=== PATIENT | male | born 1955 | race Caucasian/White ===

== ENCOUNTER 2016-10-19 11:25 | Emergency (ER) | payer MEDICARE, OTHER ==
[~2016-10-19 11:25] MED LIST: AMARYL2 MG PO; AVODART0.5 MG PO; CARAFATE1 GM PO; CELEXA10 MG PO; COLACE100 MG PO; DULERA 100 MCG8.8 GM INH; FLONASE 0.05% N16 GM; HYDROCHLOROTHIA50 MG PO; LORTAB 7.5-3251 EACH PO; LOVASTATIN20 MG PO; NAPROSYN500 MG PO; NEURONTIN600 MG PO; PLAVIX75 MG PO; PROAIR HFA8.5 GM INH; PROTONIX40 MG PO; RANEXA1000 MG PO; SINGULAIR10 MG PO; THERAGRAN TAB1 EA PO; XANAX0.5 MG PO; ZESTRIL5 MG PO
[2016-10-19 12:10] LABS: HEMOGLOBIN 11.6 gm/dl (14.0-17.5); RED BLOOD COUNT 4.62 M/UL (4.20-5.50); WHITE BLOOD COUNT 5.6 K/UL (4.5-11.0)
[2016-10-19 12:39] LABS: BUN/CREATININE RATIO 12 (0-10)
== END 2016-10-19 16:05 | disposition home or self-care (01) ==
LOC: ER1 11:25
PROVIDERS: Emergency Medicine
DX: R07.89 Other chest pain (principal); R10.13 Epigastric pain; E11.9 Type 2 diabetes mellitus without complications; J44.9 Chronic obstructive pulmonary disease, unspecified; K21.9 Gastro-esophageal reflux disease without esophagitis; Z87.891 Personal history of nicotine dependence; Z88.6 Allergy status to analgesic agent; Z79.02 Long term (current) use of antithrombotics/antiplatelets; Z79.4 Long term (current) use of insulin; Z79.899 Other long term (current) drug therapy
CPT/HCPCS: 36415; 71010; 80053; 82550; 82553; 83690; 83874; 84484; 85025; 93005; 99285

== ENCOUNTER 2016-12-17 01:51 | Emergency (ER) | payer MEDICARE, OTHER ==
[2016-12-17 02:18] LABS: HEMOGLOBIN 12.2 gm/dl (14.0-17.5); RED BLOOD COUNT 4.73 M/UL (4.20-5.50)
[2016-12-17 02:40] LABS: BUN/CREATININE RATIO 15 (0-10)
== END 2016-12-17 09:01 | disposition short-term general hospital (02) ==
LOC: ER1 01:51
PROVIDERS: Student in an Organized Health Care Education/Training Program
DX: K22.3 Perforation of esophagus (principal); R07.9 Chest pain, unspecified; J45.909 Unspecified asthma, uncomplicated; J44.9 Chronic obstructive pulmonary disease, unspecified; K21.9 Gastro-esophageal reflux disease without esophagitis; I10 Essential (primary) hypertension; E78.5 Hyperlipidemia, unspecified; I25.10 Atherosclerotic heart disease of native coronary artery without angina pectoris; E11.8 Type 2 diabetes mellitus with unspecified complications; Z79.4 Long term (current) use of insulin; Z88.0 Allergy status to penicillin; Z88.8 Allergy status to other drugs, medicaments and biological substances; Z79.899 Other long term (current) drug therapy; Z90.49 Acquired absence of other specified parts of digestive tract
CPT/HCPCS: 36415; 71010; 80053; 81001; 82550; 82553; 83690; 83874; 84484; 85025; 85610; 85730; 87086; 93005; 96361; 96365; 96367; 96375; 96376; 99285; J1580; J2270; J2405; J2550; J7050; Q9963

== ENCOUNTER 2017-01-12 18:48 | Emergency (ER) | payer MEDICARE, OTHER ==
[2017-01-12 19:13] LABS: HEMOGLOBIN 11.4 gm/dl (14.0-17.5); RED BLOOD COUNT 4.55 M/UL (4.20-5.50); WHITE BLOOD COUNT 7.5 K/UL (4.5-11.0)
[2017-01-12 19:32] LABS: BUN/CREATININE RATIO 10 (0-10)
== END 2017-01-12 23:40 | disposition home or self-care (01) ==
LOC: ER1 18:48
PROVIDERS: Student in an Organized Health Care Education/Training Program
DX: R10.817 Generalized abdominal tenderness (principal); R11.2 Nausea with vomiting, unspecified; I25.10 Atherosclerotic heart disease of native coronary artery without angina pectoris; E11.9 Type 2 diabetes mellitus without complications; I10 Essential (primary) hypertension; J44.9 Chronic obstructive pulmonary disease, unspecified; J45.909 Unspecified asthma, uncomplicated; Z87.891 Personal history of nicotine dependence; Z88.2 Allergy status to sulfonamides; Z88.6 Allergy status to analgesic agent; Z88.8 Allergy status to other drugs, medicaments and biological substances; Z90.49 Acquired absence of other specified parts of digestive tract
CPT/HCPCS: 36415; 74022; 80053; 82272; 82550; 82553; 83605; 83690; 83874; 84484; 85025; 85610; 85730; 96372; 96374; 96375; 99284; J0500; J2270; J2405; J2550; J7050; Q9962

== ENCOUNTER 2020-08-16 13:05 | Emergency (ER) | payer MEDICARE, OTHER ==
[~2020-08-16 13:05] MED LIST changes: +ATIVAN0.5 MG PO; +CYANOCOBAL1000 MCG/1 INJ; +CYCLOBENZAPRINE5 MG PO; +CYMBALTA20 MG PO; +FINASTERIDE5 MG PO; +FLEXERIL 10 MG10 MG PO; +GABAPENTIN100 MG PO; +IMDUR ER TAB 3030 MG PO; +ISORDIL TAB 1010 MG PO; +LANTUS100 UNIT/1 SC; +LANTUS100 UNIT/1 SQ; +LASIX20 MG PO; +LINZESS290 MCG PO; +LIORESAL TAB 1010 MG PO; +NITROSTAT0.4 MG SL; +NORCO 5-325 TA1 EACH PO; +OMNICEF 300 MG300 MG PO; +PERCOCET 5-3251 EACH PO; +PERCOCET 7.5-31 EACH PO; +POTASSIUM CHLO10 MEQ PO; +TESSALON PERLE100 MG PO; +TOPROL XL50 MG PO; +VALTREX1000 MG PO; +VITAMIN B-1100 MG/ML SC; +ZOFRAN4 MG PO
[2020-08-16 15:33] LABS: HEMOGLOBIN 11.8 gm/dl (14.0-17.5); RED BLOOD COUNT 4.34 M/UL (4.20-5.50); WHITE BLOOD COUNT 8.8 K/UL (4.5-11.0)
[2020-08-16 16:36] LABS: BUN/CREATININE RATIO 15 (0-10)
[2020-08-16] MEDS ORDERED: AZITHROMYCIN250 MG PO (18:18)
== END 2020-08-16 18:36 | disposition home or self-care (01) ==
LOC: ER1 13:05
PROVIDERS: Emergency Medicine
DX: R10.9 Unspecified abdominal pain (principal); R91.8 Other nonspecific abnormal finding of lung field; J44.9 Chronic obstructive pulmonary disease, unspecified; E11.9 Type 2 diabetes mellitus without complications; I10 Essential (primary) hypertension; Z86.79 Personal history of other diseases of the circulatory system; Z98.890 Other specified postprocedural states
CPT/HCPCS: 71046; 80053; 81001; 82550; 82553; 83690; 83874; 84484; 85025; 85379; 96374; 96375; 96376; 99285; J2270; J2405; Q9967

== ENCOUNTER 2020-10-23 15:05 | Emergency (ER) | payer MEDICARE, OTHER ==
[~2020-10-23 15:05] MED LIST changes: +AZITHROMYCIN250 MG PO
[2020-10-23] MEDS ORDERED: PERCOCET 5/325 T1 EA PO (16:43)
== END 2020-10-23 17:45 | disposition home or self-care (01) ==
LOC: ER1 15:05
DX: M54.9 Dorsalgia, unspecified (principal); J44.9 Chronic obstructive pulmonary disease, unspecified; J45.909 Unspecified asthma, uncomplicated; F17.210 Nicotine dependence, cigarettes, uncomplicated; Z88.2 Allergy status to sulfonamides
CPT/HCPCS: 99283

== ENCOUNTER → 2020-11-08 | Outpatient (CLI) | payer MEDICARE, OTHER ==
[~2020-11-08] MED LIST changes: +PERCOCET 5/325 T1 EA PO
== END ==
LOC: KOH-I 15:41
DX: R41.81 Age-related cognitive decline (principal); G31.9 Degenerative disease of nervous system, unspecified
CPT/HCPCS: 70450

== ENCOUNTER → 2020-11-18 | Outpatient (CLI) | payer MEDICARE, OTHER ==
[2020-11-18 16:53] LABS: HEMOGLOBIN 12.1 gm/dl (14.0-17.5); RED BLOOD COUNT 4.51 M/UL (4.20-5.50); WHITE BLOOD COUNT 7.2 K/UL (4.5-11.0)
[2020-11-18 17:12] LABS: BUN/CREATININE RATIO 13 (0-10)
[2020-11-22 16:11] LABS: CHOLESTEROL, TOTAL 127 mg/dL (100-199); HDL SIZE 9.8 nm (>=9.2); HDL-C 64 mg/dL (>39); HDL-P (TOTAL) 32.8 umol/L (>=30.5); LARGE HDL-P 10.6 umol/L (>=4.8); LARGE VLDL-P 4.7 nmol/L (<=2.7); LDL SIZE 20.1 nm (>20.5); LDL SIZE 20.1 nm (>=20.8); LDL-C 37 mg/dL (0-99); LDL-P 428 nmol/L (<1000); LP-IR SCORE 39 (<=45); SMALL LDL-P 259 nmol/L (<=527); TRIGLYCERIDES 158 mg/dL (0-149); VLDL SIZE 51.4 nm (<=46.6)
== END ==
LOC: LAB 16:16
PROVIDERS: Emergency Medicine
DX: E11.649 Type 2 diabetes mellitus with hypoglycemia without coma (principal); I10 Essential (primary) hypertension; E78.2 Mixed hyperlipidemia; R53.83 Other fatigue; Z12.5 Encounter for screening for malignant neoplasm of prostate
CPT/HCPCS: 36415; 80053; 80061; 83036; 83704; 84443; 84550; 85025; G0103

== ENCOUNTER 2020-12-09 14:09 | Emergency (ER) | payer MEDICARE, OTHER ==
[2020-12-09 15:16] LABS: HEMOGLOBIN 11.9 gm/dl (14.0-17.5); RED BLOOD COUNT 4.54 M/UL (4.20-5.50); WHITE BLOOD COUNT 6.2 K/UL (4.5-11.0)
[2020-12-09 15:37] LABS: BUN/CREATININE RATIO 11 (0-10)
== END 2020-12-09 17:46 | disposition home or self-care (01) ==
LOC: ER1 14:09
PROVIDERS: Internal Medicine
DX: R31.9 Hematuria, unspecified (principal); I11.9 Hypertensive heart disease without heart failure; E11.9 Type 2 diabetes mellitus without complications; J44.9 Chronic obstructive pulmonary disease, unspecified; Z90.49 Acquired absence of other specified parts of digestive tract; Z88.6 Allergy status to analgesic agent; Z88.2 Allergy status to sulfonamides; Z88.8 Allergy status to other drugs, medicaments and biological substances
CPT/HCPCS: 80053; 81001; 85025; 85610; 85730; 99284; Q9967

== ENCOUNTER → 2021-03-28 | Outpatient (CLI) | payer MEDICARE, OTHER | LOC: LAB 17:04 | DX: R07.9 Chest pain, unspecified (principal); R06.02 Shortness of breath | CPT/HCPCS: 36415; 71046; 85379; 85652; 86140 ==

== ENCOUNTER → 2021-05-31 | Outpatient (CLI) | payer MEDICARE, OTHER ==
[2021-05-31 13:40] LABS: BUN/CREATININE RATIO 12 (0-10)
== END ==
LOC: LAB 12:38
PROVIDERS: Emergency Medicine
DX: E11.649 Type 2 diabetes mellitus with hypoglycemia without coma (principal); I10 Essential (primary) hypertension; E11.42 Type 2 diabetes mellitus with diabetic polyneuropathy; E78.2 Mixed hyperlipidemia; I95.89 Other hypotension; E53.9 Vitamin B deficiency, unspecified; E11.69 Type 2 diabetes mellitus with other specified complication
CPT/HCPCS: 36415; 80053; 83036

== ENCOUNTER → 2021-08-08 | Outpatient (CLI) | payer MEDICARE, OTHER | LOC: LAB 12:30 → RAD 12:30 | DX: J30.1 Allergic rhinitis due to pollen (principal); J30.89 Other allergic rhinitis; H10.45 Other chronic allergic conjunctivitis; R06.00 Dyspnea, unspecified | CPT/HCPCS: 71046 ==

== ENCOUNTER 2021-10-27 11:43 | Emergency (ER) | payer MEDICARE, OTHER, MEDICAID ==
[2021-10-27 13:13] LABS: HEMOGLOBIN 11.1 gm/dl (14.0-17.5); RED BLOOD COUNT 3.81 M/UL (4.20-5.50); WHITE BLOOD COUNT 3.8 K/UL (4.5-11.0)
[2021-10-27] MEDS ORDERED: HYDROCODON-ACE1 EAC4 PO (15:30)
[2021-10-27] MEDS ORDERED: OMNICEF 300 MG300 MG PO (15:30)
== END 2021-10-27 15:45 | disposition home or self-care (01) ==
LOC: ER1 11:43
PROVIDERS: Emergency Medicine
DX: N39.0 Urinary tract infection, site not specified (principal); R31.9 Hematuria, unspecified; E11.9 Type 2 diabetes mellitus without complications
CPT/HCPCS: 51702; 80048; 81001; 85025; 96374; 96375; 96376; 99284; J0696; J2270

== ENCOUNTER → 2021-11-09 | Outpatient (CLI) | payer MEDICARE, OTHER ==
[~2021-11-09] MED LIST changes: +HYDROCODON-ACE1 EAC4 PO
[2021-11-09 15:12] LABS: RED BLOOD COUNT 4.12 M/UL (4.20-5.50); WHITE BLOOD COUNT 5.9 K/UL (4.5-11.0)
== END ==
LOC: LAB 14:24
PROVIDERS: Emergency Medicine
DX: J20.9 Acute bronchitis, unspecified (principal); R06.2 Wheezing; R09.1 Pleurisy; J98.11 Atelectasis
CPT/HCPCS: 36415; 71046; 85025

== ENCOUNTER → 2021-12-18 | Outpatient (CLI) | payer MEDICARE, OTHER | LOC: KOH-I 13:52 | DX: R05.9 Cough, unspecified (principal); R06.2 Wheezing; R09.1 Pleurisy; R06.02 Shortness of breath; Z20.822 Contact with and (suspected) exposure to COVID-19; R91.8 Other nonspecific abnormal finding of lung field | CPT/HCPCS: 71250 ==

== ENCOUNTER → 2021-12-20 | Outpatient (CLI) | payer MEDICARE, OTHER ==
[2021-12-20 12:55] LABS: HEMOGLOBIN 11.9 gm/dl (14.0-17.5); RED BLOOD COUNT 4.43 M/UL (4.20-5.50); WHITE BLOOD COUNT 4.7 K/UL (4.5-11.0)
[2021-12-20 13:10] LABS: BUN/CREATININE RATIO 13 (0-10)
[2021-12-22 14:13] LABS: CHOLESTEROL, TOTAL 131 mg/dL (100-199); HDL SIZE 10.1 nm (>=9.2); HDL-C 81 mg/dL (>39); HDL-P (TOTAL) 39.3 umol/L (>=30.5); LARGE HDL-P 13.3 umol/L (>=4.8); LARGE VLDL-P 3.4 nmol/L (<=2.7); LDL-C 33 mg/dL (0-99); LDL-P <300 nmol/L (<1000); LP-IR SCORE 29 (<=45); SMALL LDL-P <90 nmol/L (<=527); TRIGLYCERIDES 90 mg/dL (0-149); VLDL SIZE 52.2 nm (<=46.6)
== END ==
LOC: LAB 12:15
PROVIDERS: Emergency Medicine
DX: I25.10 Atherosclerotic heart disease of native coronary artery without angina pectoris (principal); E11.42 Type 2 diabetes mellitus with diabetic polyneuropathy; I10 Essential (primary) hypertension; E78.2 Mixed hyperlipidemia; G47.01 Insomnia due to medical condition; M13.811 Other specified arthritis, right shoulder
CPT/HCPCS: 36415; 80053; 80061; 83036; 83704; 84550; 85025

== ENCOUNTER → 2022-04-12 | Outpatient (CLI) | payer MEDICARE, OTHER ==
[2022-04-12 14:59] LABS: HEMOGLOBIN 11.3 gm/dl (14.0-17.5); RED BLOOD COUNT 4.55 M/UL (4.20-5.50); WHITE BLOOD COUNT 4.4 K/UL (4.5-11.0)
[2022-04-12 15:23] LABS: BUN/CREATININE RATIO 9 (0-10)
== END ==
LOC: LAB 14:20
PROVIDERS: Emergency Medicine
DX: I25.10 Atherosclerotic heart disease of native coronary artery without angina pectoris (principal); I10 Essential (primary) hypertension; R31.0 Gross hematuria; E78.2 Mixed hyperlipidemia; E11.42 Type 2 diabetes mellitus with diabetic polyneuropathy
CPT/HCPCS: 36415; 80053; 83036; 84443; 85025